=== PATIENT | male | born 1975 | race American Indian/Alaskan Native ===

== ENCOUNTER 2019-07-03 05:24 | Emergency (ER) | payer MEDICAID ==
[2019-07-03 05:35] VITALS: BP 162/98
[2019-07-03 05:56] LABS: Bacteria,Urine 1+ /HPF (Negative); Bilirubin,Urine NEG (Negative); Blood,Urine NEG (Negative); Color,Urine Yellow (Yellow); Mucus,Urine 3+ /HPF; Urobilinogen,Urine < 2.0 mg/dL (<2.0)
[2019-07-03 06:06] LABS: Benzodiazepines Screen,Urine PRESUMPTIVE NEGATIVE; Cannabinoid Screen,Urine PRESUMPTIVE NEGATIVE; Cocaine Screen,Urine PRESUMPTIVE NEGATIVE; Methadone Screen,Urine PRESUMPTIVE NEGATIVE; Opiate Screen,Urine PRESUMPTIVE NEGATIVE
[2019-07-03 06:13] LABS: Basophils # (Auto) 0.1 K/mm3 (0.0-0.1); Basophils % (Auto) 0.4 % (0.0-1.8); Eosinophils % (Auto) 0.1 % (0.0-4.3); Hematocrit 42.3 % (35.5-45.6); Hemoglobin 14.1 gm/dl (11.8-15.2); Lymphocytes # (Auto) 2.4 K/mm3 (1.2-5.4); Mean Corpuscular HGB Conc 33 % (32-34); Mean Corpuscular Volume 93 fl (84-94); Monocytes # (Auto) 1.2 K/mm3 (0.0-0.8); Platelet Count 283 K/mm3 (140-440); Red Blood Count 4.57 M/mm3 (3.65-5.03); Red Cell Distribution Width 14.1 % (13.2-15.2)
[2019-07-03 06:20] LABS: Amphetamine Screen,Urine PRESUMPTIVE POSITIVE
[2019-07-03 06:35] LABS: BUN/Creatinine Ratio 14; Blood Urea Nitrogen 14 mg/dL (9-20); Calcium 10.1 mg/dL (8.4-10.2); Hemolysis Index 7
[2019-07-03] MEDS ORDERED: levoFLOXacin 500 MG TAB PO ONE (06:44)
--- NOTE | 2019-07-03 06:48 | Emergency Department Report ---
HPI - General Chief Complaint: Psych Time Seen by Provider: 07/03/19 06:37 - HPI HPI: Room 13 The patient is a 44-year-old male present with a chief complaint of methamphetamine detox. The patient states he has a history of methamphetamine abuse and comes emergency department seeking detox. Patient states he last used methamphetamine earlier today. Patient denies suicidal homicidal ideation. Patient states he sometimes hear voices but it is "from the meth." ED Past Medical Hx - Past Medical History Previous Medical History?: No - Surgical History Past Surgical History?: No - Family History Family history: no significant - Social History Smoking Status: Current Every Day Smoker (1 pack/day) Substance Use Type: Alcohol (Rarely), Methamphetamines ED Review of Systems ROS: Stated complaint: MH Other details as noted in HPI Psychiatric: auditory hallucinations (From methamphetamine use) Physical Exam - Physical Exam Vital Signs: Vital Signs 07/03/19 05:28 Temperature 99.1 F Pulse Rate 124 H Respiratory 18 Rate Blood Pressure 162/98 O2 Sat by Pulse 99 Oximetry Physical Exam: GENERAL: The patient is well-developed well-nourished male standing in room not appearing to be in acute distress. [] HEENT: Normocephalic. Atraumatic. Extraocular motions are intact. Patient has moist mucous membranes. NECK: Supple. Trachea midline CHEST/LUNGS: Clear to auscultation. There is no respiratory distress noted. HEART/CARDIOVASCULAR: Regular. There is no tachycardia. There is no gallop rub or murmur. ABDOMEN: Abdomen is soft, nontender. Patient has normal bowel sounds. There is no abdominal distention. SKIN: There is no rash. There is no edema. There is no diaphoresis. NEURO: The patient is awake, alert, and oriented. The patient is cooperative. The patient has normal speech and gait. MUSCULOSKELETAL: There is no evidence of acute injury. ED Course Vital Signs 07/03/19 05:28 Temperature 99.1 F Pulse Rate 124 H Respiratory 18 Rate Blood Pressure 162/98 O2 Sat by Pulse 99 Oximetry ED Medical Decision Making - Lab Data Result diagrams: 07/03/19 05:53 07/03/19 05:53 - Differential Diagnosis Methamphetamine abuse Critical care attestation.: If time is entered above; I have spent that time in minutes in the direct care of this critically ill patient, excluding procedure time. ED Disposition Clinical Impression: Methamphetamine abuse, UTI (urinary tract infection) Disposition: DC-07 LEFT AGAINST MED ADVICE Is pt being admited?: No Does the pt Need Aspirin: No Condition: Stable Referrals: PRIMARY CARE, [Primary Care Provider] - 3-5 Days
[2019-07-03] MEDS ORDERED: NICOTINE 14 MG/24 HR PATCH TD ONE (07:15)
== END 2019-07-03 08:27 | disposition left against medical advice (07) ==
LOC: ED 05:24
DX: F15.10 Other stimulant abuse, uncomplicated (principal); N39.0 Urinary tract infection, site not specified; F17.200 Nicotine dependence, unspecified, uncomplicated
CPT/HCPCS: 36415; 80048; 80307; 80320; 81001; 85025; 87086; 99284; G0480

== ENCOUNTER 2019-07-03 13:30 | Emergency (ER) | payer MEDICAID ==
--- NOTE | 2019-07-03 13:46 | Emergency Department Report ---
Blank Doc - Documentation Documentation: This is a 44-year-old male that presents with depression and anxiety. Patient is crying and stated "I need mental health". Denies any SI/HI. Stated is hearing voices. HX of Meth abuse. This initial assessment/diagnostic orders/clinical plan/treatment(s) is/are subject to change based on patient's health status, clinical progression and re- assessment by fellow clinical providers in the ED. Further treatment and workup at subsequent clinical providers discretion. Patient/guardians urged not to elope from the ED as their condition may be serious if not clinically assessed and managed. Initial orders include: 1- Patient sent to MAIN ED for further evaluation and treatment 2- movie actor was notified to have patient be brought back [facility]. 3- RN was notified to keep patient as close range and observation until room available 4- Patient presents with substantial risk of imminent harm to self, appears to be so unable to care for his/her own physical health and safety as to create an imminently life-endangering crisis, and has committed/expressed life endangering crisis to self. Due to this and other complaints, patient is put on psych hold.
[2019-07-03] MEDS ORDERED: ZIPRASIDONE MESYLATE 20 MG VIAL IM ONE ×2 (14:51→14:57)
[2019-07-03] MEDS ORDERED: diphenhydrAMINE 50 MG/ML VIAL ONE (14:55)
[2019-07-03] MEDS ORDERED: diphenhydrAMINE 50 MG/ML VIAL IM ONE (14:57)
--- NOTE | 2019-07-03 15:17 | Emergency Department Report ---
ED Anxiety HPI - General Source: patient Mode of arrival: Ambulatory Limitations: No Limitations <LOWELL GARCIA - Last Filed: 07/03/19 23:11> <RANDALL BURNS - Last Filed: 07/04/19 02:59> <CHRISTY BURNS - Last Filed: 07/04/19 16:29> - General Chief Complaint: Anxiety Stated Complaint: MEDICAL CLEARENCE Time Seen by Provider: 07/03/19 13:42 - History of Present Illness Initial Comments: 44-year-old male with a past medical history of methamphetamine abuse returns to the ER with acute agitation and psychosis requiring immediate physical restraints and followed by chemical restraints. Patient was just seen here earlier by another ER provider for methamphetamine abuse and requesting detox. After ED work-up UDS was positive for methamphetamine and UA was positive for UTI. Patient was here on voluntary status since he did not endorse suicidal or homicidal ideation and decided to leave AMA prior to being evaluated by mental health fan blade truer for substance abuse placement. Patient received 1 dose of Le vaquin in the ED prior to leaving. Patient went outside to "smoke" and never left hospital property. Then he returned acutely psychotic, agitated, and tachycardic. It is suspected that patient smoked methamphetamines. His significant other was also present. (LOWELL GARCIA) Patient became agitated. He tells a nurse that he was hearing voices after awakening from chemical sedation. Patient barricaded himself in the room. He placed the bed against door. Contacted plumbing warehouse helper for permission to remove the door with the help of engineering. Security officers at bedside. I have ordered additional chemical restraint with Diego and requested seclusion and padded room (RANDALL BURNS) - Related Data Home Medications: Home Medications Medication Instructions Recorded Confirmed Last Taken No Known Home Medications [No 07/03/19 07/03/19 Unknown Reported Home Medications] Allergies/Adverse Reactions: Allergies Allergy/AdvReac Type Severity Reaction Status Date / Time No Known Allergies Allergy Unverified 07/03/19 05:41 ED Review of Systems Comment: Unobtainable due to pts medical conditions <LOWELL GARCIA - Last Filed: 07/03/19 23:11> ROS: Stated complaint: MEDICAL CLEARENCE Other details as noted in HPI ED Past Medical Hx - Past Medical History Previous Medical History?: No - Surgical History Past Surgical History?: No - Social History Smoking Status: Current Every Day Smoker Substance Use Type: Alcohol, Other <LOWELL GARCIA - Last Filed: 07/03/19 23:11> <RANDALL BURNS - Last Filed: 07/04/19 02:59> <CHRISTY BURNS - Last Filed: 07/04/19 16:29> - Medications Home Medications: Home Medications Medication Instructions Recorded Confirmed Last Taken Type No Known Home Medications [No 07/03/19 07/03/19 Unknown History Reported Home Medications] ED Physical Exam - General Limitations: No Limitations <LOWELL GARCIA - Last Filed: 07/03/19 23:11> - Other Other exam information: General: No acute distress Head: Atraumatic Eyes: normal appearance ENT: Moist mucous membranes Neck: Normal appearance, no midline tenderness Chest: Clear to auscultation bilaterally CV: tachycardic regular rhythm Abdomen: Soft, normal bowel sounds, nontender, nondistended, no rebound or guarding Back: Normal inspection Extremity: Normal inspection, full range of motion Neuro: Alert, no facial asymmetry, speech clear, no gross motor sensory deficit Psych: Agitated, psychotic, rambling, unable to redirect behavior requiring physical restraints Skin: Diaphoretic (LOWELL GARCIA) ED Course <LOWELL GARCIA - Last Filed: 07/03/19 23:11> <RANDALL BURNS - Last Filed: 07/04/19 02:59> <CHRISTY BURNS - Last Filed: 07/04/19 16:29> Vital Signs 07/03/19 07/03/19 07/03/19 13:43 15:55 16:30 Temperature 99.2 F Pulse Rate 131 H 96 H 89 Respiratory 18 14 14 Rate Blood Pressure 158/112 74/43 Blood Pressure 61/25 [Left] O2 Sat by Pulse 100 94 98 Oximetry 07/03/19 07/03/19 07/03/19 16:45 17:00 17:30 Temperature Pulse Rate 85 90 81 Respiratory 11 L 13 13 Rate Blood Pressure 85/52 89/49 96/56 Blood Pressure [Left] O2 Sat by Pulse 98 99 98 Oximetry 07/03/19 07/03/19 07/03/19 18:00 18:30 19:00 Temperature Pulse Rate 75 77 75 Respiratory 14 16 10 L Rate Blood Pressure 103/67 97/66 Blood Pressure [Left] O2 Sat by Pulse 94 99 Oximetry 07/03/19 07/03/19 07/03/19 19:30 20:00 21:00 Temperature Pulse Rate 83 78 81 Respiratory 14 16 13 Rate Blood Pressure 94/62 92/57 94/56 Blood Pressure [Left] O2 Sat by Pulse Oximetry 07/03/19 07/03/19 07/03/19 21:04 21:06 21:30 Temperature Pulse Rate 93 H 81 Respiratory 14 12 Rate Blood Pressure 94/56 93/60 Blood Pressure [Left] O2 Sat by Pulse 97 95 Oximetry 07/03/19 07/03/19 07/03/19 22:00 22:30 23:00 Temperature Pulse Rate 81 76 73 Respiratory 16 12 15 Rate Blood Pressure 96/57 92/52 91/49 Blood Pressure [Left] O2 Sat by Pulse 96 97 96 Oximetry 07/03/19 07/04/19 07/04/19 23:30 00:00 00:30 Temperature Pulse Rate 96 H Respiratory 21 17 15 Rate Blood Pressure 110/69 115/58 116/71 Blood Pressure [Left] O2 Sat by Pulse 98 97 98 Oximetry 07/04/19 07/04/19 01:00 08:19 Temperature 97.5 F L Pulse Rate 91 H Respiratory 12 20 Rate Blood Pressure 129/84 Blood Pressure 103/57 [Left] O2 Sat by Pulse 99 96 Oximetry - Reevaluation(s) Reevaluation #1: 07/03/19 16:46 Patient became hypotensive after sedatives were provided. He is sleeping with a room air saturation of 96 to 98%. IV fluid bolus initiated. 07/03/19 23:11 Patient blood pressure improved with IV fluids after hypotension induced by sedatives. CBC reviewed and patient has thrombocytopenia compared to earlier values today. Repeat CBC ordered as well as repeat CK after IV fluid hydration. Patient will have Keflex continued for UTI. Pending mental health evaluation. pt still sleeping (LOWELL GARCIA) 07/04/19 02:15 Police officers, Credit Processor department at the bedside attempting to remove patient from the room. He has barricaded himself in the room. Industrial Ecology Technician unable to open the door. (RANDALL BURNS) Reevaluation #2: 07/04/19 02:52 Fire department contacted able to partially open the door. Patient requested to speak with a physician. Patient is lucid alert and oriented. He was unclear why he was in the hospital. He continues to states that he wants at stabilization at [facility]. He appeared anxious and depressed. He is now lucid with insight. Credit Processor department, police department and fire department all in front of the door at this time. manager of operations has attempted to have patient open the door. (RANDALL BURNS) Reevaluation #3: 07/04/19 02:59 After an hour of coaxing, patient finally open the door removing the barricade. There was much destruction in the room, equipment, stretcher. (RANDALL BURNS) 07/04/19 16:28 At this time the patient is calm and cooperative and is completely lucid. Patient states he does not really remember destroying of the room that he was in after waking up from his chemical restraints. He does admit to amphetamine abuse but appears to have sobered up at this point. Patient was taken off of a 1013 at approximately 12 noon. I took the patient off of seclusion and lasted for several hours. He has been calm and cooperative he ate lunch is talked on the phone several times try and arrange for transport. Patient and I believe at this point is stable for discharge. (CHRISTY BURNS) ED Medical Decision Making - Lab Data Result diagrams: 07/03/19 15:12 07/03/19 15:12 - Differential Diagnosis Drug abuse, psychosis <LOWELL GARCIA - Last Filed: 07/03/19 23:11> - Lab Data Result diagrams: 07/03/19 23:21 07/03/19 15:12 <RANDALL BURNS - Last Filed: 07/04/19 02:59> - Lab Data Result diagrams: 07/04/19 09:31 07/04/19 09:31 <CHRISTY BURNS - Last Filed: 07/04/19 16:29> - Lab Data Lab Results 07/03/19 07/03/19 07/03/19 Range/Units 15:12 15:12 15:12 WBC 17.6 H (4.5-11.0) K/mm3 RBC 4.32 (3.65-5.03) M/mm3 Hgb 13.4 (11.8-15.2) gm/dl Hct 40.0 (35.5-45.6) % MCV 93 (84-94) fl MCH 31 (28-32) pg MCHC 33 (32-34) % RDW 14.5 (13.2-15.2) % Plt Count 47 L (140-440) K/mm3 Lymph % (Auto) 13.1 L (13.4-35.0) % [place] % (Auto) 8.3 H (0.0-7.3) % Eos % (Auto) 0.2 (0.0-4.3) % Baso % (Auto) 0.5 (0.0-1.8) % Lymph # 2.3 (1.2-5.4) K/mm3 [place] # 1.5 H (0.0-0.8) K/mm3 Eos # 0.0 (0.0-0.4) K/mm3 Baso # 0.1 (0.0-0.1) K/mm3 Seg Neutrophils % 77.9 H (40.0-70.0) % Seg Neutrophils # 13.7 H (1.8-7.7) K/mm3 Sodium 140 (137-145) mmol/L Potassium 4.0 (3.6-5.0) mmol/L Chloride 98.5 (98-107) mmol/L Carbon Dioxide 21 L (22-30) mmol/L Anion Gap 25 mmol/L BUN 16 (9-20) mg/dL Creatinine 1.2 (0.8-1.5) mg/dL Estimated GFR > 60 ml/min BUN/Creatinine Ratio 13 % Glucose 135 H (75-100) mg/dL Calcium 10.0 (8.4-10.2) mg/dL Total Creatine Kinase 626 H (55-170) units/L Urine Color (Yellow) Urine Turbidity (Clear) Urine pH (5.0-7.0) Ur Specific [place] (1.003-1.030) Urine Protein (Negative) mg/dL Urine Glucose (UA) (Negative) mg/dL Urine Ketones (Negative) mg/dL Urine Blood (Negative) Urine Nitrite (Negative) Urine Bilirubin (Negative) Urine Urobilinogen (<2.0) mg/dL Ur Leukocyte Esterase (Negative) Urine WBC (Auto) (0.0-6.0) /HPF Urine RBC (Auto) (0.0-6.0) /HPF U Epithel Cells (Auto) (0-13.0) /HPF Urine Bacteria (Auto) (Negative) /HPF Urine Mucus /HPF Salicylates < 0.3 L (2.8-20.0) mg/dL Urine Opiates Screen Urine Methadone Screen Acetaminophen (10.0-30.0) ug/mL Ur Barbiturates Screen Ur Phencyclidine Scrn Ur Amphetamines Screen U Benzodiazepines Scrn Urine Cocaine Screen U Marijuana (THC) Screen Drugs of Abuse Note Plasma/Serum Alcohol (0-0.07) % 07/03/19 07/03/19 07/03/19 Range/Units 15:12 15:12 16:00 WBC (4.5-11.0) K/mm3 RBC (3.65-5.03) M/mm3 Hgb (11.8-15.2) gm/dl Hct (35.5-45.6) % MCV (84-94) fl MCH (28-32) pg MCHC (32-34) % RDW (13.2-15.2) % Plt Count (140-440) K/mm3 Lymph % (Auto) (13.4-35.0) % [place] % (Auto) (0.0-7.3) % Eos % (Auto) (0.0-4.3) % Baso % (Auto) (0.0-1.8) % Lymph # (1.2-5.4) K/mm3 [place] # (0.0-0.8) K/mm3 Eos # (0.0-0.4) K/mm3 Baso # (0.0-0.1) K/mm3 Seg Neutrophils % (40.0-70.0) % Seg Neutrophils # (1.8-7.7) K/mm3 Sodium (137-145) mmol/L Potassium (3.6-5.0) mmol/L Chloride (98-107) mmol/L Carbon Dioxide (22-30) mmol/L Anion Gap mmol/L BUN (9-20) mg/dL Creatinine (0.8-1.5) mg/dL Estimated GFR ml/min BUN/Creatinine Ratio % Glucose (75-100) mg/dL Calcium (8.4-10.2) mg/dL Total Creatine Kinase (55-170) units/L Urine Color Yellow (Yellow) Urine Turbidity Clear (Clear) Urine pH 5.0 (5.0-7.0) Ur Specific [place] 1.030 (1.003-1.030) Urine Protein 100 mg/dl (Negative) mg/dL Urine Glucose (UA) Neg (Negative) mg/dL Urine Ketones 80 (Negative) mg/dL Urine Blood Sm (Negative) Urine Nitrite Neg (Negative) Urine Bilirubin Neg (Negative) Urine Urobilinogen < 2.0 (<2.0) mg/dL Ur Leukocyte Esterase Sm (Negative) Urine WBC (Auto) 18.0 H (0.0-6.0) /HPF Urine RBC (Auto) 1.0 (0.0-6.0) /HPF U Epithel Cells (Auto) 1.0 (0-13.0) /HPF Urine Bacteria (Auto) 1+ (Negative) /HPF Urine Mucus Few /HPF Salicylates (2.8-20.0) mg/dL Urine Opiates Screen Urine Methadone Screen Acetaminophen < 5.0 L (10.0-30.0) ug/mL Ur Barbiturates Screen Ur Phencyclidine Scrn Ur Amphetamines Screen U Benzodiazepines Scrn Urine Cocaine Screen U Marijuana (THC) Screen Drugs of Abuse Note Plasma/Serum Alcohol < 0.01 (0-0.07) % 07/03/19 Range/Units 16:00 WBC (4.5-11.0) K/mm3 RBC (3.65-5.03) M/mm3 Hgb (11.8-15.2) gm/dl Hct (35.5-45.6) % MCV (84-94) fl MCH (28-32) pg MCHC (32-34) % RDW (13.2-15.2) % Plt Count (140-440) K/mm3 Lymph % (Auto) (13.4-35.0) % [place] % (Auto) (0.0-7.3) % Eos % (Auto) (0.0-4.3) % Baso % (Auto) (0.0-1.8) % Lymph # (1.2-5.4) K/mm3 [place] # (0.0-0.8) K/mm3 Eos # (0.0-0.4) K/mm3 Baso # (0.0-0.1) K/mm3 Seg Neutrophils % (40.0-70.0) % Seg Neutrophils # (1.8-7.7) K/mm3 Sodium (137-145) mmol/L Potassium (3.6-5.0) mmol/L Chloride (98-107) mmol/L Carbon Dioxide (22-30) mmol/L Anion Gap mmol/L BUN (9-20) mg/dL Creatinine (0.8-1.5) mg/dL Estimated GFR ml/min BUN/Creatinine Ratio % Glucose (75-100) mg/dL Calcium (8.4-10.2) mg/dL Total Creatine Kinase (55-170) units/L Urine Color (Yellow) Urine Turbidity (Clear) Urine pH (5.0-7.0) Ur Specific [place] (1.003-1.030) Urine Protein (Negative) mg/dL Urine Glucose (UA) (Negative) mg/dL Urine Ketones (Negative) mg/dL Urine Blood (Negative) Urine Nitrite (Negative) Urine Bilirubin (Negative) Urine Urobilinogen (<2.0) mg/dL Ur Leukocyte Esterase (Negative) Urine WBC (Auto) (0.0-6.0) /HPF Urine RBC (Auto) (0.0-6.0) /HPF U Epithel Cells (Auto) (0-13.0) /HPF Urine Bacteria (Auto) (Negative) /HPF Urine Mucus /HPF Salicylates (2.8-20.0) mg/dL Urine Opiates Screen Presumptive negative Urine Methadone Screen Presumptive negative Acetaminophen (10.0-30.0) ug/mL Ur Barbiturates Screen Presumptive negative Ur Phencyclidine Scrn Presumptive negative Ur Amphetamines Screen Presumptive positive U Benzodiazepines Scrn Presumptive negative Urine Cocaine Screen Presumptive negative U Marijuana (THC) Screen Presumptive negative Drugs of Abuse Note Disclamer Plasma/Serum Alcohol (0-0.07) % (LOWELL GARCIA) - Medical Decision Making Patient had acute change in mental status after smoking came outside. Suspected that patient smoked methamphetamine given tachycardia, hypertensive, patient psychotic aggressive behavior, and UDS positive for methamphetamines. After sedation patient had hypotension that has improved with IV fluids. He has been sedated and sleeping during ED stay. CBC showed thrombocytopenia with repeat pending. Mild CK elevation with repeat pending. Plan for mental health evaluation in the a.m. and to continue psychiatric hold. Keflex twice daily will be continued for UTI and patient received Levaquin earlier in the day. (LOWELL GARCIA) CBC repeat showed normal platelet count resolution of leukocytosis. Patient is medically clear for psychiatric care. (RANDALL BURNS) Critical Care Time: No <LOWELL GARCIA - Last Filed: 07/03/19 23:11> Critical care attestation.: If time is entered above; I have spent that time in minutes in the direct care of this critically ill patient, excluding procedure time. ED Disposition <LOWELL GARCIA - Last Filed: 07/03/19 23:11> <RANDALL BURNS - Last Filed: 07/04/19 02:59> Is pt being admited?: No Does the pt Need Aspirin: No Time of Disposition: 16:29 <CHRISTY BURNS - Last Filed: 07/04/19 16:29> Clinical Impression: Methamphetamine abuse, Acute psychosis Disposition: - TO HOME OR SELFCARE Condition: Stable Referrals: PRIMARY CARE, [Primary Care Provider] - 3-5 Days
[2019-07-03 15:48] LABS: BUN/Creatinine Ratio 13; Blood Urea Nitrogen 16 mg/dL (9-20); Hemolysis Index 29
[2019-07-03] MEDS ORDERED: SODIUM CHLORIDE 0.9% 1000 ML 2,000 ML ONE (16:06)
[2019-07-03 16:34] LABS: Benzodiazepines Screen,Urine PRESUMPTIVE NEGATIVE; Cannabinoid Screen,Urine PRESUMPTIVE NEGATIVE; Cocaine Screen,Urine PRESUMPTIVE NEGATIVE; Methadone Screen,Urine PRESUMPTIVE NEGATIVE; Opiate Screen,Urine PRESUMPTIVE NEGATIVE
[2019-07-03] MEDS ORDERED: SODIUM CHLORIDE 0.9% 1000 ML 1,000 ML IV ONE ×3 (16:35→23:13)
[2019-07-03 16:43] LABS: Bacteria,Urine 1+ /HPF (Negative); Bilirubin,Urine NEG (Negative); Blood,Urine SM (Negative); Color,Urine Yellow (Yellow); Mucus,Urine FEW /HPF; Urobilinogen,Urine < 2.0 mg/dL (<2.0)
[2019-07-03 16:45] LABS: Amphetamine Screen,Urine PRESUMPTIVE POSITIVE
[2019-07-03 23:52] LABS: Basophils # (Auto) 0.1 K/mm3 (0.0-0.1); Basophils % (Auto) 0.7 % (0.0-1.8); Eosinophils % (Auto) 0.1 % (0.0-4.3); Hematocrit 36.8 % (35.5-45.6); Hemoglobin 12.8 gm/dl (11.8-15.2); Lymphocytes # (Auto) 2.5 K/mm3 (1.2-5.4); Lymphocytes % (Auto) 22.1 % (13.4-35.0); Mean Corpuscular HGB Conc 35 % (32-34); Mean Corpuscular Volume 92 fl (84-94); Monocytes # (Auto) 1.2 K/mm3 (0.0-0.8); Monocytes % (Auto) 10.3 % (0.0-7.3); Platelet Count 219 K/mm3 (140-440); Red Blood Count 4.01 M/mm3 (3.65-5.03)
[2019-07-04 00:14] LABS: Hematocrit TNR % (35.5-45.6); Hemoglobin TNR gm/dl (11.8-15.2); Red Blood Count TNR M/mm3 (3.65-5.03)
[2019-07-04 00:15] LABS: Lymphocytes % (Auto) TNR % (13.4-35.0); Mean Corpuscular HGB Conc TNR % (32-34); Mean Corpuscular Volume TNR fl (84-94); Mean Platelet Volume TNR fl (6-12); Platelet Count TNR K/mm3 (140-440); Red Cell Distribution Width TNR % (13.2-15.2)
[2019-07-04 00:16] LABS: Basophils % (Auto) TNR % (0.0-1.8); Eosinophils # (Auto) TNR K/mm3 (0.0-0.4); Eosinophils % (Auto) TNR % (0.0-4.3); Lymphocytes # (Auto) TNR K/mm3 (1.2-5.4); Monocytes # (Auto) TNR K/mm3 (0.0-0.8); Monocytes % (Auto) TNR % (0.0-7.3)
[2019-07-04 00:17] LABS: Basophils # (Auto) TNR K/mm3 (0.0-0.1)
[2019-07-04] MEDS: cephALEXin 500 MG CAP PO SCH ×2 (00:23→10:16)
[2019-07-04] MEDS ORDERED: SODIUM CHLORIDE 0.9% 1000 ML 1,000 ML IV ONE (00:45)
[2019-07-04] MEDS ORDERED: LORazepam 2 MG/ML VIAL IV ONE (01:33)
[2019-07-04] MEDS ORDERED: ZIPRASIDONE MESYLATE 20 MG VIAL IM ONE ×2 (01:47→01:48)
[2019-07-04] MEDS ORDERED: LORazepam 2 MG/ML VIAL ONE (02:57)
[2019-07-04 09:49] LABS: Basophils % (Auto) 0.3 % (0.0-1.8); Eosinophils % (Auto) 0.1 % (0.0-4.3); Hematocrit 39.3 % (35.5-45.6); Lymphocytes # (Auto) 2.1 K/mm3 (1.2-5.4); Lymphocytes % (Auto) 14.5 % (13.4-35.0); Mean Corpuscular HGB Conc 33 % (32-34); Mean Corpuscular Volume 93 fl (84-94); Monocytes # (Auto) 1.2 K/mm3 (0.0-0.8); Monocytes % (Auto) 8.7 % (0.0-7.3); Platelet Count 264 K/mm3 (140-440); Red Blood Count 4.23 M/mm3 (3.65-5.03); Red Cell Distribution Width 14.4 % (13.2-15.2)
[2019-07-04 10:05] LABS: BUN/Creatinine Ratio 23; Blood Urea Nitrogen 25 mg/dL (9-20); Calcium 9.7 mg/dL (8.4-10.2); Hemolysis Index 5
[2019-07-04 10:06] LABS: Creatine Kinase MB 9.8 ng/mL (0.0-4.0)
[2019-07-04 11:47] VITALS: BP 129/84
== END 2019-07-04 16:35 | disposition home or self-care (01) ==
LOC: EEVIPCON 13:30 → ED 13:30
DX: F23 Brief psychotic disorder (principal); F15.10 Other stimulant abuse, uncomplicated; F17.200 Nicotine dependence, unspecified, uncomplicated; Z02.89 Encounter for other administrative examinations
CPT/HCPCS: 36415; 80048; 80307; 81001; 82550; 82553; 85025; 96372; 96374; 99285; J1200; J2060; J3486; J7030; 80320; G0480